=== PATIENT | male | born 1950 | race Caucasian/White ===

== ENCOUNTER 2021-05-18 13:26 | Emergency (ER) | payer MEDICARE, OTHER, SELFPAY ==
[2021-05-18] VITALS (10 sets, daily range): BP systolic 116–131; BP diastolic 50–91; PULSE 100–114; RESP 12–34; TEMP 36.3; O2SAT 84–98; BMI 34.7
--- NOTE | 2021-05-18 13:36 | EKG12_ITS ---
Test Reason : SOB Blood Pressure : / mmHG Vent. Rate : 101 BPM Atrial Rate : 101 BPM P-R Int : 146 ms QRS Dur : 084 ms QT Int : 322 ms P-R-T Axes : 065 044 042 degrees QTc Int : 417 ms Sinus tachycardia Low voltage QRS Nonspecific T wave abnormality Confirmed by SKY PROCTOR, RADHA ([id number]), technical editor CHINO MORRISSEY ([id number]) on 05/20/2021 9:21:00 AM Referred By: MATT Confirmed By:RADHA SWANSON MD
--- NOTE | 2021-05-18 13:36 | RAD_ITS ---
STUDY: X-RAY CHEST REASON FOR EXAM: Male, 70 years old. Respiratory failure TECHNIQUE: 1 view COMPARISON: None. FINDINGS: The heart is not enlarged. There is evidence of consolidation involving the left lower lobe behind the heart. There is large right paratracheal and right suprahilar mass is causing deviation of the trachea to the left side. There haziness involving the medial aspect of the right apex. CT scan is recommended for better assessment in this patient. RAD/Chest 1 View (Portable) IMPRESSION: Consolidation left lower lobe Large right paratracheal and suprahilar mass with haziness of the right apex for CT scans needed. Electronically Signed: Julissa Ansari, at 15:00 EDT Tel , Service support ,
--- NOTE | 2021-05-18 13:38 | EDS_ITS ---
HPI History of Present Illness Chief Complaint: Shortness of Breath Informant: patient Onset/Context/Timing Onset: Weeks (Approximately 5 to 6 weeks ago) Context: gradual Timing: Continuous Quality: Positive for Dyspnea on exertion, Orthopnea and Wheezing Current Severity: Severe Maximum Severity: Severe Worsened by: Exertion, Lying flat and Coughing Relieved by: Nothing Associated Symptoms cough; Negative for rhinorrhea, post nasal drip, ear pain, fever, sore throat, subjective or chills Chest Pain: Positive for Continuous and Dull Narrative Narrative: Is a elderly male who smokes 2 packs/day. Is not seen a physician since 1988. Is present on no medication. He states that shortness of breath started 5 to 6 weeks ago. He does have a cough which is occasionally productive. He also reports increased swelling of his legs over the past several weeks. He reports 2 pillow orthopnea which is new over the past month. He states has not been able to smoke as much the past week. He denies fever, chills night sweats. He denies upper respiratory symptoms. He denies history of VTE. He denies GI symptoms. He denies urologic symptoms. PE Risk Factors: Negative for Cancer, OCP + Smoking + > 35, Prior DVT or PE, Recent immobilization, Recent surgery and Recent travel Prior similar symptoms: No Recent Illness/Hospitalization: No PFSH PFSH no medical history Allergy/AdvReac Type Severity Reaction Status Date / Time codeine Allergy Chest Verified 05/18/21 13:33 tightness no surgical history Social History (Updated 05/18/21 @ 13:[address] Garrett Montejo MD) household members: none housing: apartment Smoking Status: Current every day smoker tobacco type: cigarettes alcohol intake: never substance use type: does not use ROS ROS ED Review of Systems ROS Unobtainable: other Details: Limited due to respiratory distress Constitutional Constitutional ED: Reports sweats; Denies chills or fever(s) Eyes Eyes: Denies blurry vision or change in vision ENT ENT ED: Denies rhinorrhea or sore throat Cardiovascular Cardiovascular: Reports chest pain, orthopnea and palpitations; Denies paroxysmal nocturnal dyspnea or racing heartbeat Respiratory/Chest Respiratory/Chest: Reports cough, dyspnea, dyspnea on exertion, orthopnea and sputum; Denies paroxysmal nocturnal dyspnea Gastrointestinal Gastrointestinal: Denies abdominal pain, diarrhea, nausea or vomiting Genitourinary Genitourinary ED: Denies dysuria, hematuria or urinary frequency Musculoskeletal Musculoskeletal: Denies arthralgias, back pain or myalgias Integumentary Reports rash; Denies abscess Neurologic Neurologic: Denies headache(s) Endocrine Endocrinology: Denies polydipsia, polyphagia or polyuria EXAM Physical Exam Const Vital Signs: 05/18/21 13:29 05/18/21 13:33 05/18/21 13:39 Temperature 97.4 F L Temperature Source Temporal Pulse Rate 114 H Respiratory Rate 34 H 33 H Respiratory Effort Short of Breath Accessory Muscle Use Respiratory Pattern Tachypnea Blood Pressure 129/84 H Blood Pressure Mean 99 Pulse Ox 84 92 Oxygen Delivery Method Room Air Non-Rebreather Non-Rebreather Oxygen Flow Rate (L/min) 15 Fraction of Inspired Oxygen (FIO2) 05/18/21 14:14 Temperature Temperature Source Pulse Rate 101 H Respiratory Rate 20 H Respiratory Effort Respiratory Pattern Tachypnea Blood Pressure Blood Pressure Mean Pulse Ox 94 Oxygen Delivery Method Oxygen Flow Rate (L/min) Fraction of Inspired Oxygen (FIO2) 50 Positive well nourished, well developed and obese General Appearance ED: well developed, pallor and other Patient in respiratory distress with audible wheezing. Nutritional Appearance: obese HEENT Reports moist mucous membranes HEENT Narrative: Nares patent. Ears normal. Posterior pharynx unremarkable. Eyes PERRL and EOMs intact bilaterally Eyes Narrative: Expiratory stridor General Eye ED: Negative for pale conjunctiva or scleral icterus Neck no lymphadenopathy, supple, no meningeal signs and no JVD Neck Narrative: Trachea midline. Resp No normal respiratory effort and No clear to auscultation bilaterally Resp Narrative: There is use of accessory muscles and retractions. Auscultation: rhonchi throughout (Expiratory phrases increased. There is wheezi ng with forced expiration. ) and diminished lung sounds Cardio regular rhythm and no murmurs Cardio Narrative: Unable to appreciate heart sounds due to rhonchi Rate: tachycardic GI non-tender and non-distended Auscultation: normoactive bowel sounds Palpation: soft Back/Spine no CVA tenderness and normal to inspection Extremity Negative for normal to inspection Extremity Narrative: Pitting edema of both right and left leg and feet General Extremety ED: Yes edema; Negative for tenderness General Extremity: edema Neuro oriented x3 and CN's II-XII intact bilaterally Suzie Coma Scale: document GCS findings Spontaneous Obeys Commands Oriented 15 Sensorium / Orientation: alert Psych mental status grossly normal Skin General Skin Exam: pallor Lesions: no lesions Rashes: no rashes MDM MDM MDM Narrative Medical decision making narrative: Is in respiratory distress. This may represent pneumonia, COPD exacerbation, heart failure, need to evaluate renal function, since he is pale need to rule out anemia and high-output heart failure. ABG was obtained to assess CO2, acid-base status and AA gradient. Since patient has rhonchi throughout and is a 2 pack/day smoker he was treated with DuoNeb. Troponin was obtained to rule out cardiac ischemia. Lactate may be elevated due to hypoxia. In light of this large right hilar mass with tracheal deviation and compression patient will need to be transferred to tertiary care center with cardiothoracic surgery. Patient was informed of his results. Patient was informed he needs to be transferred. Patient prefers to go to [place]. [facility] was accepted by [facility] Lab Data Attestation: I reviewed the patient's lab results. Labs: Laboratory Results - last 24 hr 05/18/21 05/18/21 05/18/21 13:30 13:30 13:30 WBC 11.6 H RBC 5.62 Hgb 16.1 Hct 48.8 MCV 86.8 MCH 28.6 MCHC 33.0 RDW Std Deviation 52.5 H RDW Coeff of Anne 16.9 H Plt Count 249 MPV 10.9 Immature Gran % (Auto) 0.700 Neut % (Auto) 82.3 H Lymph % (Auto) 7.2 L Polk % (Auto) 9.5 Eos % (Auto) 0.0 Baso % (Auto) 0.3 Absolute Neuts (auto) 9.5 H Absolute Lymphs (auto) 0.84 Nucleated RBC % 0 PT Cancelled INR Cancelled APTT Cancelled D-Dimer Quant (PE/DVT) Cancelled Sodium 134 L Potassium 4.5 Chloride 94 L Carbon Dioxide 26.0 Anion Gap 14 BUN 28 H Creatinine 1.04 Estim Creat Clear Calc 66.09 Est GFR (MDRD) Af Amer 91 Est GFR (MDRD) Non-Af 75 BUN/Creatinine Ratio 26.9 H Glucose 89 Lactic Acid Calcium 9.3 Total Bilirubin 1.20 H AST 73 H ALT 72 H Alkaline Phosphatase 139 H Troponin I < 0.015 B-Natriuretic Peptide Total Protein 7.6 Albumin 3.0 L Globulin 4.6 H Albumin/Globulin Ratio 0.7 L 05/18/21 05/18/21 05/18/21 13:30 13:50 14:00 WBC RBC Hgb Hct MCV MCH MCHC RDW Std Deviation RDW Coeff of Anne Plt Count MPV Immature Gran % (Auto) Neut % (Auto) Lymph % (Auto) Polk % (Auto) Eos % (Auto) Baso % (Auto) Absolute Neuts (auto) Absolute Lymphs (auto) Nucleated RBC % PT 14.9 INR 1.2 APTT 33.9 D-Dimer Quant (PE/DVT) Sodium Potassium Chloride Carbon Dioxide Anion Gap BUN Creatinine Estim Creat Clear Calc Est GFR (MDRD) Af Amer Est GFR (MDRD) Non-Af BUN/Creatinine Ratio Glucose Lactic Acid 2.5 H* Calcium Total Bilirubin AST ALT Alkaline Phosphatase Troponin I B-Natriuretic Peptide 75.4 Total Protein Albumin Globulin Albumin/Globulin Ratio ABG Data ABG results: ABG 05/18/21 14:30 Specimen Type ART Sample Site R Radial pH 7.43 Bicarbonate Actual 24.4 Total CO2 26 Base Excess 0 O2 Saturation 98 O2 % 50 ABG pCO2 37.1 ABG pO2 101 H Petr Test Positive O2 Delivery Device BiPAP POC PEEP 6 POC Pressure Suppt 12 Radiography Chest X-Ray - ED: 1 View, Read by ED Physician (There is a large right hilar mass with deviation and compression of the trachea.), Heart and Bony Structures Diagnostic Testing: Radiology Impression Chest X-Ray 05/18/21 13:36 IMPRESSION: Consolidation left lower lobe Large right paratracheal and suprahilar mass with haziness of the right apex for CT scans needed. Electronically Signed: Julissa Ansari, at 15:00 EDT Tel , Service support , Treatment and Re-Evaluation Comments:: Patient's hospital of first choice had no capacity. I spoke again with patient access coordinator at [facility] and was told there are no beds. Spoke with Kimberlee the patient access coordinator at [facility], who informed me she will need to see if there are beds available. Since there are no beds apparently available will obtain CT of the patient's chest to determine the size of mass, involvement of the mediastinum and how much deviation and compression of the trachea there is. Critical Care Time Critical Care Time: Yes Critical care time (excluding procedures): 30-74 minutes (Time 37 minutes), Including time spent: (History, physical exam, documentation, interpretation of x-ray, discussion with patient and family regarding need for transfer and findings.), Discussing w/Consultants and Arranging Admission or Transfer Discharge Plan Triage Chief Complaint: Shortness of Breath ED Provider: Garrett Montejo Dx/Rx/DC Orders Clinical Impression: Expiratory stridor, Compression of trachea, Hilar mass, Acute respiratory failure with hypoxia, Acidosis, lactic Primary Care Provider: Care Physician,No Primary Referrals: Care Physician,No Primary [Primary Care Provider] -
[2021-05-18 13:49] LABS: Absolute Lymphocyte Count 0.84 X10^3/uL (0.83-4.51); Absolute Neutrophil Count 9.5 X10^3/uL (2.0-7.7); Basophil# 0.03 X10^3/uL; Basophil% 0.3 % (0-1); Hematocrit 48.8 % (40-54); Hemoglobin 16.1 g/dL (13.0-16.5); Lymphocyte # 0.84 X10^3/ul (0.83-4.51); Lymphocyte % 7.2 % (19-41); Mean Corpuscular Hgb 28.6 pg (27.0-32.0); Mean Corpuscular Volume 86.8 fL (80-94); Mean Platelet Vol. 10.9 fl (6.2-12.0); Monocyte% 9.5 % (0-10); NRBC Flagged by Analyzer 0 % (0-5); Neutrophil # 9.54 X10^3/uL (2.7-7.7); Neutrophil % 82.3 % (47-70); Platelet Count 249 K/mm3 (150-450); RBC Distribution Width CV 16.9 % (11.6-14.6); RBC Distribution Width SD 52.5 fl (35.1-43.9); Red Blood Count 5.62 M/mm3 (4.6-6.2); White Blood Count 11.6 K/mm3 (4.4-11.0)
[2021-05-18] MEDS: Ipratropium/Albuterol Sulfate 3 ML AMPUL.NEB INHALATION (14:01)
[2021-05-18 14:06] LABS: BNP,B-Type NATRIURETIC PEPTIDE 75.4 pg/mL (0-100)
[2021-05-18 14:09] LABS: ALB/GLOB Ratio 0.7 RATIO (0.9-2.4); AST(SGOT) 73 U/L (15-37); Alanine Aminotransfer ALT/SGPT 72 U/L (16-61); Alkaline Phosphatase 139 U/L (45-117); Anion Gap 14 (5-15); BUN 28 mg/dL (7-18); BUN/Creat Ratio 26.9 RATIO (10-20); Calcium,Total 9.3 mg/dL (8.5-10.1); Chloride 94 mmol/L (98-107); Creatinine, Serum 1.04 mg/dL (0.70-1.30); EST Glomerular Filtration Rate 75 mL/min (>60); Est Glom Filt Rate - Afr Amer 91 mL/min (>60); Estimated Creatinine Clearance 66.09 ml/min; Globulin 4.6 g/dL (2.2-4.2); Glucose 89 mg/dL (74-106); Potassium 4.5 mmol/L (3.5-5.1); Protein, Total 7.6 g/dL (6.4-8.2); Sodium Level 134 mmol/L (136-145)
[2021-05-18 14:19] LABS: International Normalized Ratio 1.2; Prothrombin Time (Protime)PT. 14.9 SECONDS (11.7-14.9)
[2021-05-18 14:20] LABS: Partial Thromboplast Time 33.9 Seconds (24.1-36.2)
[2021-05-18 14:33] LABS: Lactic Acid 2.5 mmol/L (0.4-1.9)
[2021-05-18 14:35] LABS: Allen Test Positive; Base Excess 0 mmol/L (-2 to +2); Bicarbonate 24.4 mmol/L (22-26); Blood Gas Specimen Type ART; FI02 50; O2 Delivery Device BiPAP; PEEP 6; PO2 101 mmHG (75-100); PS 12; SITE R Radial; SO2 98 % (95-99); Total Carbon Dioxide 26 mmol/L; pCO2 37.1 mmHg (35-45); pH 7.43 (7.35-7.45)
--- NOTE | 2021-05-18 14:35 | ED.RN ---
lactic acid 2.5, dr ramirez notified
--- NOTE | 2021-05-18 15:14 | CT_ITS ---
STUDY: CT CHEST WITH CONTRAST REASON FOR EXAM: Male, 70 years old. Hilar mass, compression and deviation trachea, exp -- Expiratory stridor RADIATION DOSAGE (If Supplied By Facility): CTDIvol = ( 19.19 ) mGy, DLP = ( 728.35 ) mGycm TECHNIQUE: Transaxial imaging was performed following intravenous administration of IV 100mL [id number]-300. Individualized dose optimization techniques were used for this CT. COMPARISON: None. FINDINGS: There is large lobulated mass measures 18.8 x 13 cm involving the right side of the neck extending down to the right paratracheal and right suprahilar area this is encasing the brachiocephalic vessels including the right common carotid and right subclavian artery. Also causing complete obstruction of the superior vena cava and right jugular vein leading to significant collateral circulation in the right side of the chest. The mass is causing markedly narrowing of the trachea the maximum narrowing of the trachea almost 3 mm in transverse diameter. This mass is not enhancing could be arising from the thyroid or represent markedly enlarged lymph nodes and it is amenable for biopsy diameter CT/Chest WITH Contrast IMPRESSION: Significantly enlarged lobulated mass extending from the right side of the neck down to the right right paratracheal and hilar region causing encasement of the vessels and causing marked narrowing of the trachea. Electronically Signed: Julissa Ansari, at 16:36 EDT Tel , Service support ,
[2021-05-18 15:32] LABS: D-Dimer Quantitative (DVT/PE) 1.59 FEU/ug/m (0.27-0.49)
[2021-05-18 18:00] LABS: Reflex Lactate? Y
== END 2021-05-18 18:05 | disposition short-term general hospital (02) ==
LOC: ED 14:05
PROVIDERS: Emergency Provider Emergency Medicine
DX: J96.01 Acute respiratory failure with hypoxia (principal); J39.8 Other specified diseases of upper respiratory tract; R91.8 Other nonspecific abnormal finding of lung field; E87.2 Acidosis; E66.9 Obesity, unspecified; Z68.34 Body mass index [BMI] 34.0-34.9, adult; F17.210 Nicotine dependence, cigarettes, uncomplicated
CPT/HCPCS: 36600; 71045; 71260; 80053; 82803; 83605; 83880; 84484; 85025; 85379; 85610; 85730; 87040; 87635; 93005; 94002; 94640; 99285; Q9967; U0005; A4216; U0003